=== PATIENT | male | born 2000 | race Caucasian/White ===

== ENCOUNTER 2018-04-29 16:01 | Emergency (ER) | payer BC ==
[~2018-04-29] VITALS: Ht 185.4 cm; Wt 93.2 kg
[2018-04-29 16:03] VITALS: BP 132/63; TEMP 98.1
[2018-04-29] MEDS ORDERED: CRUTCHES MC (16:42)
[2018-04-29 17:15] VITALS: PULSE 74
== END 2018-04-29 17:16 | disposition home or self-care (01) ==
LOC: COL.ER 16:01
DX: S82.402A Unspecified fracture of shaft of left fibula, initial encounter for closed fracture (principal); W00.0XXA Fall on same level due to ice and snow, initial encounter; X50.0XXA Overexertion from strenuous movement or load, initial encounter; Y92.214 College as the place of occurrence of the external cause
CPT/HCPCS: Q4045